=== PATIENT | male | born 1935 | race Caucasian/White ===

== ENCOUNTER 2016-07-25 14:27 | Emergency (ER) | payer MEDICARE, OTHER ==
[~2016-07-25] VITALS: Ht 180.3 cm; Wt 81.6 kg
--- NOTE | 2016-07-25 14:52 | NUR ---
Patient discharged to home in stable conditon. Written and verbal after care instructions given. Patient verbalizes understanding of instructions. Stressed follow up.
[2016-07-25] MEDS ORDERED: NEOMY/BACITRA/POLYMYXIN B OINT UD PACKET TP ONE ×2 (15:00→15:03)
[2016-07-25] MEDS ORDERED: SULFAMETH/TRIMETH 800/160 MG TABLET PO ONE (15:00)
[2016-07-25] MEDS ORDERED: SULFAMETH/TRIMETH 800/160 MG TABLET ONE (15:03)
== END 2016-07-25 14:54 | disposition home or self-care (01) ==
LOC: ER 14:27
DX: L01.00 Impetigo, unspecified (principal); I83.029 Varicose veins of left lower extremity with ulcer of unspecified site; I25.10 Atherosclerotic heart disease of native coronary artery without angina pectoris; E11.9 Type 2 diabetes mellitus without complications; I10 Essential (primary) hypertension
CPT/HCPCS: A4663